=== PATIENT | female | born 1955 | race Caucasian/White ===

== ENCOUNTER 2017-01-17 15:16 | Emergency (ER) | payer SELFPAY ==
[~2017-01-17] VITALS: Ht 167.6 cm; Wt 84.0 kg
[2017-01-17 15:20] VITALS: BP 161/68
[2017-01-17] MEDS ORDERED: METF10002 PO (15:27)
[2017-01-17] MEDS ORDERED: INSU100I28 SQ (15:27)
[2017-01-17] MEDS ORDERED: LISI10TA5 PO (15:27)
== END 2017-01-17 23:50 | disposition left against medical advice (07) ==
LOC: ER 15:16
DX: R07.81 Pleurodynia (principal); Z53.21 Procedure and treatment not carried out due to patient leaving prior to being seen by health care provider